=== PATIENT | female | born 1990 | race African-American/Black ===

== ENCOUNTER 2019-03-02 11:23 | Emergency (ER) | payer MEDICAID ==
[~2019-03-02] VITALS: Ht 162.6 cm; Wt 99.5 kg
[2019-03-02 11:48] VITALS: Ht 162.6 cm; Wt 99.5 kg
[2019-03-02] MEDS ORDERED: TAMIFLU75 MG PO (13:40)
[2019-03-02] MEDS ORDERED: MUCINEX DM ER1 EAC1 PO (13:40)
[2019-03-02 14:27] VITALS: BP 126/72
== END 2019-03-02 14:28 | disposition home or self-care (01) ==
LOC: D.ER 11:23
DX: J11.1 Influenza due to unidentified influenza virus with other respiratory manifestations (principal); Z72.0 Tobacco use

== ENCOUNTER 2019-11-20 00:46 | Emergency (ER) | payer MEDICAID ==
[~2019-11-20] VITALS: Ht 162.6 cm; Wt 102.3 kg
[~2019-11-20 00:46] MED LIST: MUCINEX DM ER1 EAC1 PO; TAMIFLU75 MG PO
[2019-11-20 00:52] VITALS: Ht 162.6 cm; Wt 102.3 kg
[2019-11-20] MEDS ORDERED: ULTRAM50 MG PO (02:37)
[2019-11-20 03:08] VITALS: BP 148/75
== END 2019-11-20 03:09 | disposition home or self-care (01) ==
LOC: D.ER 00:46
DX: M54.31 Sciatica, right side (principal)